=== PATIENT | female | born 1935 | race Caucasian/White ===

== ENCOUNTER 2021-01-24 12:53 | Inpatient (IN) | payer OTHER ==
[~2021-01-24] VITALS: Ht 175.3 cm; Wt 77.1 kg
[2021-01-24] MEDS ORDERED: SODIUM CHLORIDE 0.9% 1000ML 1,000 ML IV STA (13:44)
[2021-01-24] MEDS ORDERED: DEXAMETHASONE SOD PHOS 10 MG/1 ML VIAL IV SCH (13:45)
[2021-01-24] MEDS ORDERED: AZITHROMYCIN 500MG/NS 250 ML 250 ML IV ONE (14:00)
[2021-01-24] MEDS ORDERED: CEFTRIAXONE 1 GM in SODIUM CHLORIDE 0.9% 50ML 50 ML IV ONE (14:00)
[2021-01-24] MEDS ORDERED: CEFTRIAXONE SOD 1 GM/50 ML BAG IV ONE (14:00)
[2021-01-24 14:08] LABS: BASOPHILS % 0.2 % (0.0-1.0); EOSINOPHILS % 0.7 % (0.0-6.0); HEMOGLOBIN 9.7 g/dL (12.0-16.0); LYMPHOCYTES # (AUTO) 0.9 (1.0-3.2); LYMPHOCYTES % 16.4 % (18.0-39.1); MEAN CORPUSCULAR HEMOGLOBIN 29.2 pg (28-32); MEAN CORPUSCULAR HGB CONC 30.3 g/dL (31-35); MEAN CORPUSCULAR VOLUME 96.4 fL (81-99); MONOCYTES # (AUTO) 0.2 (0.2-0.8); MONOCYTES % 4.1 % (4.4-11.3); NEUTROPHILS # (AUTO) 4.2 (2.1-6.9); NEUTROPHILS % 77.7 % (38.7-80.0); PLATELET COUNT 279 x10e3/uL (140-360); RED BLOOD COUNT 3.32 x10e6/uL (3.6-5.1); RED CELL DISTRIBUTION WIDTH 16.6 % (11.7-14.4)
[2021-01-24 14:12] LABS: INR 1.01; PROTHROMBIN TIME 13.9 seconds (11.9-14.5)
[2021-01-24 14:13] LABS: PARTIAL THROMBOPLASTIN TIME 30.8 seconds (23.8-35.5)
[2021-01-24 14:19] LABS: ABG HCO3 25 mmol/L (22-26); ABG PCO2 32 mmHg (35-45); ABG PH 7.49 (7.35-7.45); ABG PO2 52 mmHg (80-105); ABG TCO2 26
[2021-01-24 14:23] LABS: ALBUMIN 2.8 g/dL (3.5-5.0); ALBUMIN/GLOBULIN RATIO 0.8 (0.8-2.0); ANION GAP 14.5 mmol/L (8-16); CALCIUM 8.3 mg/dL (8.4-10.2); CREATININE, SERUM 1.25 mg/dL (0.57-1.11); MAGNESIUM 2.1 MG/DL (1.3-2.1); POTASSIUM 4.5 mmol/L (3.5-5.1)
[2021-01-24 14:29] LABS: CREATINE KINASE MB 0.8 ng/mL (0-5.0)
[2021-01-24 14:30] LABS: CLARITY,URINE HAZY (CLEAR); COLOR,URINE YELLOW (YELLOW); LEUKOCYTE ESTERASE ,URINE SMALL (NEGATIVE); NITRITE,URINE POSITIVE (NEGATIVE); PROTEIN,URINE DIPSTICK 1+ (NEGATIVE)
[2021-01-24] MEDS ORDERED: ACETAMINOPHEN 325 MG TAB PO ONE (14:30)
[2021-01-24] MEDS ORDERED: ACETAMINOPHEN 325 MG TAB ONE (14:30)
[2021-01-24 14:31] LABS: KETONES,URINE NEGATIVE (NEGATIVE); URINE UROBILINOGEN 0.2 mg/dL (0.2 - 1)
[2021-01-24 14:32] LABS: BACTERIA,URINE MANY /HPF; WBC,URINE (MAN) >50 /HPF (0-5)
[2021-01-24 14:33] LABS: EPITHELIAL CELLS,URINE FEW /LPF; MUCUS,URINE MODERATE (RARE)
[2021-01-24 14:40] LABS: B-TYPE NATRIURETIC PEPTIDE2 313.9 pg/mL (0-100)
[2021-01-24] MEDS ORDERED: SODIUM CHLORIDE 0.9% 500ML 500 ML IV ONE (15:15)
[2021-01-24] MEDS ORDERED: SODIUM CHLORIDE 0.9% 50ML 50 ML ONE (15:56)
[2021-01-24] MEDS ORDERED: IOPAMIDOL 370 MG/ML 200 ML INFUS..BTL INJ ONE (15:56)
[2021-01-24] MEDS ORDERED: ONDANSETRON HCL INJ 2MG/ML 2ML 2 MG/ML VIAL IV PRN ×2 (18:15→23:00)
[2021-01-24] MEDS ORDERED: MORPHINE SULFATE INJ 2 MG/ML SYR IV PRN (18:15)
[2021-01-24] MEDS: PIPERACILLIN/TAZO 2.25 GM 50 ML IV SCH (18:15)
[2021-01-24] MEDS ORDERED: PIPERACILLIN/TAZOBACTAM SOD 2.25 GM VIAL ONE (18:46)
[2021-01-24] MEDS: ENOXAPARIN SODIUM INJ 100 MG/ML SYR SC SCH (18:49)
[2021-01-24 22:00] VITALS: BP 102/52
[2021-01-24 23:00] VITALS: BP 101/46
[2021-01-24] MEDS ORDERED: ACETAMINOPHEN/CODEINE 300MG - 30MG TAB PO PRN (23:00)
[2021-01-24] MEDS ORDERED: ACETAMINOPHEN 325 MG TAB PO PRN (23:00)
[2021-01-24] MEDS ORDERED: HYDRALAZINE HCL 20 MG/ML VIAL IV PRN (23:00)
[2021-01-24] MEDS ORDERED: ALBUTEROL/IPRATROPIUM 3 ML NEB NEB PRN (23:15)
[2021-01-25] VITALS (26 sets, daily range): BP systolic 90–143; BP diastolic 42–79
[2021-01-25] MEDS ORDERED: PIPERACILLIN/TAZOBACTAM SOD 2.25 GM VIAL ONE ×2 (00:07→06:02)
[2021-01-25] MEDS: PIPERACILLIN/TAZO 2.25 GM 50 ML IV SCH ×5 (00:24→23:55)
[2021-01-25] MEDS ORDERED: SODIUM CHLORIDE 0.9% 50ML 50 ML ONE ×2 (00:32→06:02)
[2021-01-25 05:49] LABS: HEMOGLOBIN 9.1 g/dL (12.0-16.0); LYMPHOCYTES # (AUTO) 1.2 (1.0-3.2); LYMPHOCYTES % 29.5 % (18.0-39.1); MEAN CORPUSCULAR HEMOGLOBIN 29.2 pg (28-32); MEAN CORPUSCULAR HGB CONC 30.3 g/dL (31-35); MEAN CORPUSCULAR VOLUME 96.2 fL (81-99); MONOCYTES # (AUTO) 0.1 (0.2-0.8); MONOCYTES % 2.5 % (4.4-11.3); NEUTROPHILS # (AUTO) 2.7 (2.1-6.9); NEUTROPHILS % 66.8 % (38.7-80.0); PLATELET COUNT 269 x10e3/uL (140-360); RED BLOOD COUNT 3.12 x10e6/uL (3.6-5.1); RED CELL DISTRIBUTION WIDTH 16.1 % (11.7-14.4)
[2021-01-25] MEDS: ENOXAPARIN SODIUM INJ 100 MG/ML SYR SC SCH (05:57)
[2021-01-25 06:42] LABS: ALBUMIN 2.5 g/dL (3.5-5.0); ALBUMIN/GLOBULIN RATIO 0.7 (0.8-2.0); ANION GAP 14.9 mmol/L (8-16); CALCIUM 8.3 mg/dL (8.4-10.2); CHOL/HDL RATIO 3.9 (3.0-3.6); CREATININE, SERUM 1.36 mg/dL (0.57-1.11); POTASSIUM 4.9 mmol/L (3.5-5.1)
[2021-01-25 07:30] LABS: % IRON SATURATION 8 % (15-50); IRON 23 ug/dL (50-170); TOTAL IRON BINDING CAPACITY 281 ug/dL (261-478); TRANSFERRIN 201 mg/dL (180-382)
[2021-01-25 09:33] LABS: CREATINE KINASE MB 1.2 ng/mL (0-5.0)
[2021-01-25 12:58] LABS: CREATINE KINASE MB 1.4 ng/mL (0-5.0)
[2021-01-25] MEDS ORDERED: DEXTROSE 50% SYRINGE 50 ML IV PRN (14:45)
[2021-01-25] MEDS ORDERED: DULCOLAX SUPP10 MG RC (16:16)
[2021-01-25] MEDS ORDERED: SERTRALINE HCL50 MG PO (16:16)
[2021-01-25] MEDS ORDERED: SENNA8.6 MG PO (16:16)
[2021-01-25] MEDS ORDERED: ADMELOG SO100 UNIT/1 SQ (16:16)
[2021-01-25] MEDS ORDERED: HYDROCODON-ACE1 EAC9 PO (16:16)
[2021-01-25] MEDS ORDERED: VITAMIN B-121000 MCG PO (16:16)
[2021-01-25] MEDS ORDERED: ASPIRIN81 MG PO (16:16)
[2021-01-25] MEDS ORDERED: TRULICITY0.75 MG/0. SQ (16:16)
[2021-01-25] MEDS ORDERED: SIMETHICONE80 MG PO ×2 (16:16)
[2021-01-25] MEDS ORDERED: MIRTAZAPINE15 MG PO (16:16)
[2021-01-25] MEDS ORDERED: VITAMIN D3 COM1 EACH PO (16:16)
[2021-01-25] MEDS ORDERED: CALCIUM CARBON500 MG PO (16:16)
[2021-01-25] MEDS ORDERED: FOLIC ACID20 MG PO (16:16)
[2021-01-25] MEDS ORDERED: SEMGLEE PE100 UNIT/1 SQ ×2 (16:16)
[2021-01-25] MEDS ORDERED: JARDIANCE25 MG PO (16:16)
[2021-01-25] MEDS ORDERED: AMLODIPINE BESY10 MG PO (16:16)
[2021-01-25] MEDS ORDERED: TRULICITY1.5 MG/0.5 SQ (16:16)
[2021-01-25] MEDS ORDERED: LISINOPRIL10 MG PO (16:16)
[2021-01-25] MEDS ORDERED: GLIMEPIRIDE4 MG PO (16:16)
[2021-01-25] MEDS ORDERED: ZOCOR10 MG PO (16:16)
[2021-01-25] MEDS ORDERED: NEURONTIN100 MG PO (16:16)
[2021-01-25] MEDS ORDERED: PANTOPRAZOLE SO40 MG PO (16:16)
[2021-01-25] MEDS ORDERED: FLOMAX0.4 MG PO (16:16)
[2021-01-25] MEDS ORDERED: ULTRAM50 MG PO (16:16)
[2021-01-25] MEDS: INSULIN REGULAR, HUMAN 100 UNIT/1 ML 3ML VIAL SQ SCH ×2 (16:30→21:15)
[2021-01-25] MEDS: ENOXAPARIN INJ 80 MG/0.8 ML SYR SC SCH (17:30)
[2021-01-26] VITALS (9 sets, daily range): BP systolic 115–139; BP diastolic 46–93
[2021-01-26 05:09] LABS: BASOPHILS % 0.2 % (0.0-1.0); EOSINOPHILS # (AUTO) 0.1 (0.0-0.4); EOSINOPHILS % 2.6 % (0.0-6.0); HEMOGLOBIN 8.5 g/dL (12.0-16.0); LYMPHOCYTES # (AUTO) 1.8 (1.0-3.2); LYMPHOCYTES % 34.7 % (18.0-39.1); MEAN CORPUSCULAR HEMOGLOBIN 29.1 pg (28-32); MEAN CORPUSCULAR HGB CONC 30.4 g/dL (31-35); MEAN CORPUSCULAR VOLUME 95.9 fL (81-99); MONOCYTES # (AUTO) 0.4 (0.2-0.8); MONOCYTES % 7.7 % (4.4-11.3); NEUTROPHILS # (AUTO) 2.7 (2.1-6.9); PLATELET COUNT 275 x10e3/uL (140-360); RED BLOOD COUNT 2.92 x10e6/uL (3.6-5.1); RED CELL DISTRIBUTION WIDTH 16.2 % (11.7-14.4)
[2021-01-26 05:23] LABS: ALBUMIN 2.5 g/dL (3.5-5.0); ALBUMIN/GLOBULIN RATIO 0.8 (0.8-2.0); ANION GAP 14.4 mmol/L (8-16); CREATININE, SERUM 1.07 mg/dL (0.57-1.11); POTASSIUM 4.4 mmol/L (3.5-5.1)
[2021-01-26] MEDS: ENOXAPARIN INJ 80 MG/0.8 ML SYR SC SCH ×2 (05:33→17:12)
[2021-01-26] MEDS: PIPERACILLIN/TAZO 2.25 GM 50 ML IV SCH ×3 (05:52→18:18)
[2021-01-26] MEDS: INSULIN REGULAR, HUMAN 100 UNIT/1 ML 3ML VIAL SQ SCH ×4 (07:21→21:20)
[2021-01-26] MEDS ORDERED: PANTOPRAZOLE SOD 40 MG TABEC PO SCH (12:00)
[2021-01-26] MEDS ORDERED: SENNOSIDES 8.6 MG TAB PO SCH (12:00)
[2021-01-26] MEDS ORDERED: BISACODYL 10 MG SUPP PR PRN (16:00)
[2021-01-26] MEDS ORDERED: SALINE 0.65% NAS SOLN 1 SPRAY BTL PRN (16:15)
[2021-01-26] MEDS: GLIMEPIRIDE 2 MG TAB PO SCH (17:00)
[2021-01-26] MEDS: SENNOSIDES 8.6 MG TAB PO SCH (17:12)
[2021-01-26] MEDS: IRON SUCROSE 100 MG in SODIUM CHLORIDE 0.9% 100 ML 100 ML IV SCH (17:12)
[2021-01-26] MEDS: PANTOPRAZOLE SOD 40 MG TABEC PO SCH (17:12)
[2021-01-26] MEDS: GABAPENTIN 100 MG CAP PO SCH (21:14)
[2021-01-26] MEDS: SIMVASTATIN 20 MG TAB PO SCH (21:14)
[2021-01-26] MEDS: MIRTAZAPINE 15 MG TAB PO SCH (21:14)
[2021-01-27] VITALS (8 sets, daily range): BP systolic 108–131; BP diastolic 47–56
[2021-01-27] MEDS: PIPERACILLIN/TAZO 2.25 GM 50 ML IV SCH ×4 (00:31→19:00)
[2021-01-27] MEDS: ENOXAPARIN INJ 80 MG/0.8 ML SYR SC SCH (06:00)
[2021-01-27 07:16] LABS: BASOPHILS % 0.3 % (0.0-1.0); EOSINOPHILS # (AUTO) 0.2 (0.0-0.4); HEMATOCRIT 29.1 % (34.2-44.1); HEMOGLOBIN 8.6 g/dL (12.0-16.0); LYMPHOCYTES # (AUTO) 1.2 (1.0-3.2); LYMPHOCYTES % 32.1 % (18.0-39.1); MEAN CORPUSCULAR HEMOGLOBIN 28.5 pg (28-32); MEAN CORPUSCULAR HGB CONC 29.6 g/dL (31-35); MEAN CORPUSCULAR VOLUME 96.4 fL (81-99); MONOCYTES # (AUTO) 0.3 (0.2-0.8); MONOCYTES % 8.9 % (4.4-11.3); NEUTROPHILS % 54.2 % (38.7-80.0); PLATELET COUNT 269 x10e3/uL (140-360); RED BLOOD COUNT 3.02 x10e6/uL (3.6-5.1); RED CELL DISTRIBUTION WIDTH 16.5 % (11.7-14.4)
[2021-01-27] MEDS ORDERED: PANTOPRAZOLE SOD 40 MG TABEC PO SCH (07:30)
[2021-01-27] MEDS: INSULIN REGULAR, HUMAN 100 UNIT/1 ML 3ML VIAL SQ SCH ×4 (07:30→21:08)
[2021-01-27 07:35] LABS: ANION GAP 14.4 mmol/L (8-16); CALCIUM 7.8 mg/dL (8.4-10.2); CREATININE, SERUM 0.95 mg/dL (0.57-1.11); POTASSIUM 4.4 mmol/L (3.5-5.1)
[2021-01-27] MEDS: PANTOPRAZOLE SOD 40 MG TABEC PO SCH (08:13)
[2021-01-27] MEDS: GLIMEPIRIDE 2 MG TAB PO SCH ×2 (08:13→17:08)
[2021-01-27] MEDS: CYANOCOBALAMIN 1,000 MCG TAB PO SCH (08:18)
[2021-01-27] MEDS: AMLODIPINE BESYLATE 10 MG TAB PO SCH (08:18)
[2021-01-27] MEDS: TAMSULOSIN HCL 0.4 MG CAP PO SCH (08:18)
[2021-01-27] MEDS: SENNOSIDES 8.6 MG TAB PO SCH (08:18)
[2021-01-27] MEDS: ASPIRIN 81 MG CHEW TAB PO SCH (08:18)
[2021-01-27] MEDS: OYST-CAL-D 500MG TABLET PO SCH (08:18)
[2021-01-27] MEDS: SERTRALINE HCL 50 MG TAB PO SCH (08:18)
[2021-01-27] MEDS ORDERED: EPOETIN ALFA-EPBX 10,000 UNIT/ML VIAL SC ONE (09:45)
[2021-01-27] MEDS ORDERED: APIXABAN 5 MG TABLET PO SCH (17:00)
[2021-01-27] MEDS: APIXABAN 5 MG TABLET PO SCH (17:08)
[2021-01-27] MEDS: IRON SUCROSE 100 MG in SODIUM CHLORIDE 0.9% 100 ML 100 ML IV SCH (18:20)
[2021-01-27] MEDS: SIMVASTATIN 20 MG TAB PO SCH (21:07)
[2021-01-27] MEDS: MIRTAZAPINE 15 MG TAB PO SCH (21:07)
[2021-01-27] MEDS: GABAPENTIN 100 MG CAP PO SCH (21:07)
[2021-01-28] VITALS: BP 136/55
[2021-01-28] MEDS: PIPERACILLIN/TAZO 2.25 GM 50 ML IV SCH ×3 (00:09→16:49)
[2021-01-28 04:00] VITALS: BP 125/49
[2021-01-28 07:24] LABS: BASOPHILS % 0.3 % (0.0-1.0); EOSINOPHILS # (AUTO) 0.2 (0.0-0.4); HEMATOCRIT 29.4 % (34.2-44.1); HEMOGLOBIN 8.7 g/dL (12.0-16.0); LYMPHOCYTES # (AUTO) 1.5 (1.0-3.2); LYMPHOCYTES % 37.4 % (18.0-39.1); MEAN CORPUSCULAR HEMOGLOBIN 28.5 pg (28-32); MEAN CORPUSCULAR HGB CONC 29.6 g/dL (31-35); MEAN CORPUSCULAR VOLUME 96.4 fL (81-99); MONOCYTES # (AUTO) 0.3 (0.2-0.8); MONOCYTES % 7.3 % (4.4-11.3); NEUTROPHILS % 50.5 % (38.7-80.0); PLATELET COUNT 255 x10e3/uL (140-360); RED BLOOD COUNT 3.05 x10e6/uL (3.6-5.1); RED CELL DISTRIBUTION WIDTH 16.3 % (11.7-14.4)
[2021-01-28 07:48] LABS: ALBUMIN 2.4 g/dL (3.5-5.0); ALBUMIN/GLOBULIN RATIO 0.7 (0.8-2.0); ANION GAP 12.1 mmol/L (8-16); CREATININE, SERUM 0.98 mg/dL (0.57-1.11); POTASSIUM 4.1 mmol/L (3.5-5.1)
[2021-01-28 08:00] VITALS: BP 127/55
[2021-01-28] MEDS: SENNOSIDES 8.6 MG TAB PO SCH ×2 (09:00→10:17)
[2021-01-28 09:08] VITALS: BP 127/55
[2021-01-28] MEDS: AMLODIPINE BESYLATE 10 MG TAB PO SCH ×2 (10:15→10:18)
[2021-01-28] MEDS: INSULIN REGULAR, HUMAN 100 UNIT/1 ML 3ML VIAL SQ SCH ×3 (10:16→16:30)
[2021-01-28] MEDS: OYST-CAL-D 500MG TABLET PO SCH (10:17)
[2021-01-28] MEDS: APIXABAN 5 MG TABLET PO SCH ×2 (10:17→16:52)
[2021-01-28] MEDS: PANTOPRAZOLE SOD 40 MG TABEC PO SCH (10:17)
[2021-01-28] MEDS: TAMSULOSIN HCL 0.4 MG CAP PO SCH (10:17)
[2021-01-28] MEDS: CYANOCOBALAMIN 1,000 MCG TAB PO SCH (10:17)
[2021-01-28] MEDS: SERTRALINE HCL 50 MG TAB PO SCH (10:17)
[2021-01-28] MEDS: ASPIRIN 81 MG CHEW TAB PO SCH (10:17)
[2021-01-28] MEDS: GLIMEPIRIDE 2 MG TAB PO SCH ×2 (10:17→16:52)
[2021-01-28 12:00] VITALS: BP 151/54
[2021-01-28] MEDS ORDERED: ELIQUIS5 MG PO (15:24)
[2021-01-28] MEDS ORDERED: CIPRO500 MG PO (15:24)
[2021-01-28 16:08] VITALS: BP 135/35
[2021-01-28] MEDS ORDERED: NYSTATIN 15 GM POWDER UD BTL TOP SCH (17:00)
[2021-01-28] MEDS ORDERED: ONDANSETRON HCL 4 MG ORAL DISINTEGRATING TAB PO PRN (17:00)
[2021-01-28] MEDS: IRON SUCROSE 100 MG in SODIUM CHLORIDE 0.9% 100 ML 100 ML IV SCH (17:00)
[2021-01-28] MEDS ORDERED: PIPERACILLIN/TAZOBACTAM 2.25 GM in SODIUM CHLORIDE 0.9% 50ML 50 ML IV SCH (18:00)
== END 2021-01-28 19:50 | disposition home or self-care (01) | DRG 175 ==
LOC: ER 13:15 → EDBD 18:04 → ERHOLD 18:04 → ICU 22:05 → IMCU 01-26 00:28 → MED/SURG3 01-28 13:16
PROVIDERS: ADMIT Internal Medicine; ATTEND Internal Medicine
DX: I26.99 Other pulmonary embolism without acute cor pulmonale (principal); J96.01 Acute respiratory failure with hypoxia; N17.9 Acute kidney failure, unspecified; N39.0 Urinary tract infection, site not specified; K62.6 Ulcer of anus and rectum; Z20.822 Contact with and (suspected) exposure to COVID-19; E11.9 Type 2 diabetes mellitus without complications; D64.9 Anemia, unspecified; I10 Essential (primary) hypertension; Z86.16 Personal history of COVID-19; B96.1 Klebsiella pneumoniae [K. pneumoniae] as the cause of diseases classified elsewhere; Z85.3 Personal history of malignant neoplasm of breast; Z96.649 Presence of unspecified artificial hip joint; R21 Rash and other nonspecific skin eruption; R33.9 Retention of urine, unspecified; E66.9 Obesity, unspecified; S51.812A Laceration without foreign body of left forearm, initial encounter; L89.151 Pressure ulcer of sacral region, stage 1; S31.114A Laceration without foreign body of abdominal wall, left lower quadrant without penetration into peritoneal cavity, initial encounter; Z91.81 History of falling; Z68.25 Body mass index [BMI] 25.0-25.9, adult; Z79.84 Long term (current) use of oral hypoglycemic drugs
CPT/HCPCS: 36415; 36600; 51700; 71045; 71260; 80048; 80053; 80061; 81001; 82550; 82553; 82728; 82805; 82948; 83540; 83605; 83735; 83880; 84466; 84484; 85025; 85610; 85730; 87040; 87086; 87186; 93005; 93306; 93970; 96372; 97139; 99251; 99285; J0456; J0696; J1100; J1650; J1756; J1817; J2543; J7030; Q9967; U0002

== ENCOUNTER 2021-02-02 16:28 | Inpatient (IN) | payer OTHER ==
[2021-02-01] MEDS: APIXABAN 5 MG TABLET PO SCH (23:45)
[~2021-02-02] VITALS: Ht 175.3 cm; Wt 77.1 kg
[~2021-02-02 16:28] MED LIST: ADMELOG SO100 UNIT/1 SQ; AMLODIPINE BESY10 MG PO; ASPIRIN81 MG PO; CALCIUM CARBON500 MG PO; CIPRO500 MG PO; DULCOLAX SUPP10 MG RC; ELIQUIS5 MG PO; FLOMAX0.4 MG PO; FOLIC ACID20 MG PO; GLIMEPIRIDE4 MG PO; HYDROCODON-ACE1 EAC9 PO; JARDIANCE25 MG PO; LISINOPRIL10 MG PO; MIRTAZAPINE15 MG PO; NEURONTIN100 MG PO; PANTOPRAZOLE SO40 MG PO; SEMGLEE PE100 UNIT/1 SQ; SENNA8.6 MG PO; SERTRALINE HCL50 MG PO; SIMETHICONE80 MG PO; TRULICITY0.75 MG/0. SQ; TRULICITY1.5 MG/0.5 SQ; ULTRAM50 MG PO; VITAMIN B-121000 MCG PO; VITAMIN D3 COM1 EACH PO; ZOCOR10 MG PO
[2021-02-02 17:21] LABS: BASOPHILS % 0.2 % (0.0-1.0); EOSINOPHILS # (AUTO) 0.1 (0.0-0.4); EOSINOPHILS % 1.7 % (0.0-6.0); HEMATOCRIT 30.2 % (34.2-44.1); HEMOGLOBIN 8.8 g/dL (12.0-16.0); LYMPHOCYTES # (AUTO) 1.2 (1.0-3.2); LYMPHOCYTES % 24.2 % (18.0-39.1); MEAN CORPUSCULAR HEMOGLOBIN 28.4 pg (28-32); MEAN CORPUSCULAR HGB CONC 29.1 g/dL (31-35); MEAN CORPUSCULAR VOLUME 97.4 fL (81-99); MONOCYTES # (AUTO) 0.3 (0.2-0.8); MONOCYTES % 5.5 % (4.4-11.3); NEUTROPHILS # (AUTO) 3.2 (2.1-6.9); NEUTROPHILS % 67.8 % (38.7-80.0); PLATELET COUNT 300 x10e3/uL (140-360); RED CELL DISTRIBUTION WIDTH 17.2 % (11.7-14.4)
[2021-02-02 17:25] LABS: INR 1.41; PROTHROMBIN TIME 17.9 seconds (11.9-14.5)
[2021-02-02 17:26] LABS: PARTIAL THROMBOPLASTIN TIME 40.5 seconds (23.8-35.5)
[2021-02-02 17:33] LABS: ALBUMIN 2.7 g/dL (3.5-5.0); ALBUMIN/GLOBULIN RATIO 0.7 (0.8-2.0); ANION GAP 15.5 mmol/L (8-16); CALCIUM 8.4 mg/dL (8.4-10.2); CREATININE, SERUM 1.1 mg/dL (0.57-1.11); POTASSIUM 3.5 mmol/L (3.5-5.1)
[2021-02-02] MEDS ORDERED: SODIUM CHLORIDE 0.9% 500ML 500 ML IV ONE (19:00)
[2021-02-02] MEDS ORDERED: IOPAMIDOL 370 MG/ML 200 ML INFUS..BTL INJ ONE (19:10)
[2021-02-02] MEDS ORDERED: SODIUM CHLORIDE 0.9% 50ML 50 ML ONE (19:10)
[2021-02-02] MEDS ORDERED: FUROSEMIDE INJ 10 MG/ML 4 ML VIAL IV ONE (20:30)
[2021-02-02] MEDS ORDERED: ACETAMINOPHEN 325 MG TAB PO PRN (23:00)
[2021-02-02] MEDS ORDERED: ONDANSETRON HCL INJ 2MG/ML 2ML 2 MG/ML VIAL IV PRN (23:00)
[2021-02-02] MEDS ORDERED: MIRTAZAPINE 15 MG TAB PO SCH (23:15)
[2021-02-02 23:40] VITALS: BP 132/65
[2021-02-03] MEDS ORDERED: OMEPRAZOLE40 MG PO (00:20)
[2021-02-03] MEDS ORDERED: GABAPENTIN300 MG PO (00:20)
[2021-02-03] MEDS ORDERED: FUROSEMIDE INJ 10 MG/ML 4 ML VIAL ONE (00:53)
[2021-02-03 02:00] VITALS: BP 115/57
[2021-02-03 04:00] VITALS: BP 118/52
[2021-02-03 05:03] LABS: BASOPHILS % 0.2 % (0.0-1.0); EOSINOPHILS # (AUTO) 0.1 (0.0-0.4); EOSINOPHILS % 2.3 % (0.0-6.0); HEMATOCRIT 28.4 % (34.2-44.1); HEMOGLOBIN 8.5 g/dL (12.0-16.0); LYMPHOCYTES # (AUTO) 0.7 (1.0-3.2); LYMPHOCYTES % 12.5 % (18.0-39.1); MEAN CORPUSCULAR HEMOGLOBIN 28.3 pg (28-32); MEAN CORPUSCULAR HGB CONC 29.9 g/dL (31-35); MEAN CORPUSCULAR VOLUME 94.7 fL (81-99); MONOCYTES # (AUTO) 0.3 (0.2-0.8); NEUTROPHILS # (AUTO) 4.5 (2.1-6.9); NEUTROPHILS % 79.5 % (38.7-80.0); PLATELET COUNT 277 x10e3/uL (140-360); RED CELL DISTRIBUTION WIDTH 17.3 % (11.7-14.4)
[2021-02-03 05:34] LABS: ALBUMIN 2.4 g/dL (3.5-5.0); ALBUMIN/GLOBULIN RATIO 0.7 (0.8-2.0); ANION GAP 14.5 mmol/L (8-16); CREATININE, SERUM 1.03 mg/dL (0.57-1.11); POTASSIUM 3.5 mmol/L (3.5-5.1)
[2021-02-03] MEDS: INSULIN LISPRO 100 UNIT/1 ML 3ML VIAL SQ SCH ×3 (07:30→16:30)
[2021-02-03 08:51] VITALS: BP 116/42
[2021-02-03] MEDS ORDERED: SERTRALINE HCL 50 MG TAB PO SCH (09:00)
[2021-02-03 09:24] VITALS: BP 116/42
[2021-02-03] MEDS: APIXABAN 5 MG TABLET PO SCH (09:48)
[2021-02-03] MEDS ORDERED: LACTATED RINGER'S 500 ML INJ ONE (10:30)
[2021-02-03] MEDS ORDERED: HEPARIN 25,000 UNIT 1,300 UNIT in DEXTROSE 5% 250ML 250 ML IV SCH (10:30)
[2021-02-03] MEDS ORDERED: LIDOCAINE HCL 2% LOCAL 20 ML VIAL ONE (10:36)
[2021-02-03 12:25] VITALS: BP 101/52
[2021-02-03 16:35] VITALS: BP 96/63
[2021-02-03] MEDS ORDERED: SIMVASTATIN 20 MG TAB PO SCH (21:00)
== END 2021-02-03 17:14 | disposition short-term general hospital (02) | DRG 175 ==
LOC: ER 16:31 → ERHOLD 21:13 → IMCU 23:00 → OBSVTOIN 02-03 10:27
PROVIDERS: ADMIT Internal Medicine; ATTEND Internal Medicine
DX: I26.99 Other pulmonary embolism without acute cor pulmonale (principal); J96.00 Acute respiratory failure, unspecified whether with hypoxia or hypercapnia; N17.9 Acute kidney failure, unspecified; E11.9 Type 2 diabetes mellitus without complications; Z79.4 Long term (current) use of insulin; M16.11 Unilateral primary osteoarthritis, right hip; Z85.3 Personal history of malignant neoplasm of breast; Z20.822 Contact with and (suspected) exposure to COVID-19
CPT/HCPCS: 36415; 71045; 71260; 80053; 82550; 82553; 82948; 83880; 84484; 85025; 85610; 85730; 93005; 93306; 99251; 99284; G0378; J1940; J2001; J7040; J7121; Q9967; U0002

== ENCOUNTER 2021-03-19 13:36 | Inpatient (IN) | payer MEDICARE, OTHER ==
[~2021-03-19] VITALS: Ht 147.3 cm; Wt 77.1 kg
[~2021-03-19 13:36] MED LIST changes: +GABAPENTIN300 MG PO; +OMEPRAZOLE40 MG PO
[2021-03-19 14:34] LABS: BASOPHILS % 0.1 % (0.0-1.0); EOSINOPHILS # (AUTO) 0.1 (0.0-0.4); EOSINOPHILS % 0.7 % (0.0-6.0); HEMATOCRIT 35.6 % (34.2-44.1); HEMOGLOBIN 10.3 g/dL (12.0-16.0); LYMPHOCYTES # (AUTO) 0.9 (1.0-3.2); LYMPHOCYTES % 12.6 % (18.0-39.1); MEAN CORPUSCULAR HEMOGLOBIN 26.8 pg (28-32); MEAN CORPUSCULAR HGB CONC 28.9 g/dL (31-35); MEAN CORPUSCULAR VOLUME 92.7 fL (81-99); MONOCYTES # (AUTO) 0.2 (0.2-0.8); MONOCYTES % 3.3 % (4.4-11.3); NEUTROPHILS # (AUTO) 5.8 (2.1-6.9); NEUTROPHILS % 82.7 % (38.7-80.0); PLATELET COUNT 302 x10e3/uL (140-360); RED BLOOD COUNT 3.84 x10e6/uL (3.6-5.1)
[2021-03-19 14:37] LABS: CLARITY,URINE SL CLOUDY (CLEAR); COLOR,URINE YELLOW (YELLOW); KETONES,URINE NEGATIVE (NEGATIVE); LEUKOCYTE ESTERASE ,URINE MODERATE (NEGATIVE); NITRITE,URINE NEGATIVE (NEGATIVE); PROTEIN,URINE DIPSTICK TRACE (NEGATIVE); URINE UROBILINOGEN 0.2 mg/dL (0.2 - 1)
[2021-03-19 14:54] LABS: ALBUMIN 3.1 g/dL (3.5-5.0); ALBUMIN/GLOBULIN RATIO 0.8 (0.8-2.0); ANION GAP 17.1 mmol/L (8-16); CALCIUM 8.7 mg/dL (8.4-10.2); CREATININE, SERUM 1.72 mg/dL (0.57-1.11); POTASSIUM 5.1 mmol/L (3.5-5.1)
[2021-03-19 15:00] LABS: AMORPHOUS SEDIMENT,URINE MODERATE (FEW); BACTERIA,URINE MANY /HPF; EPITHELIAL CELLS,URINE FEW /LPF
[2021-03-19] MEDS ORDERED: CEFTRIAXONE 1 GM VIAL IV ONE (15:30)
[2021-03-19] MEDS ORDERED: SODIUM CHLORIDE 0.9% 1000ML 1,000 ML IV SCH (15:30)
[2021-03-19] MEDS ORDERED: ONDANSETRON HCL INJ 2MG/ML 2ML 2 MG/ML VIAL IV PRN (15:45)
[2021-03-19] MEDS ORDERED: CEFTRIAXONE 1 GM in SODIUM CHLORIDE 0.9% 50ML 50 ML IV ONE (15:45)
[2021-03-19] MEDS: SODIUM CHLORIDE 0.9% 1000ML 1,000 ML IV SCH ×2 (16:30→23:00)
[2021-03-19 22:24] VITALS: BP 138/47
[2021-03-19] MEDS ORDERED: GABAPENTIN 300 MG CAP PO SCH (22:45)
[2021-03-19] MEDS ORDERED: DEXTROSE 50% SYRINGE 50 ML IV PRN (23:00)
[2021-03-20] VITALS (9 sets, daily range): BP systolic 115–160; BP diastolic 39–66
[2021-03-20] MEDS ORDERED: GABAPENTIN 300 MG CAP PO SCH (04:45)
[2021-03-20 06:00] LABS: BASOPHILS % 0.2 % (0.0-1.0); EOSINOPHILS # (AUTO) 0.1 (0.0-0.4); EOSINOPHILS % 2.4 % (0.0-6.0); HEMATOCRIT 34.3 % (34.2-44.1); HEMOGLOBIN 9.8 g/dL (12.0-16.0); LYMPHOCYTES # (AUTO) 1.8 (1.0-3.2); LYMPHOCYTES % 43.1 % (18.0-39.1); MEAN CORPUSCULAR HEMOGLOBIN 27.5 pg (28-32); MEAN CORPUSCULAR HGB CONC 28.6 g/dL (31-35); MEAN CORPUSCULAR VOLUME 96.3 fL (81-99); MONOCYTES # (AUTO) 0.3 (0.2-0.8); NEUTROPHILS % 47.8 % (38.7-80.0); PLATELET COUNT 220 x10e3/uL (140-360); RED BLOOD COUNT 3.56 x10e6/uL (3.6-5.1)
[2021-03-20 06:24] LABS: ANION GAP 13.7 mmol/L (8-16); CREATININE, SERUM 1.26 mg/dL (0.57-1.11); POTASSIUM 4.7 mmol/L (3.5-5.1)
[2021-03-20] MEDS: INSULIN LISPRO 100 UNIT/1 ML 3ML VIAL SQ SCH ×4 (07:30→20:55)
[2021-03-20] MEDS: GLIMEPIRIDE 2 MG TAB PO SCH ×2 (08:00→17:02)
[2021-03-20] MEDS: PANTOPRAZOLE SOD 40 MG TABEC PO SCH (08:00)
[2021-03-20] MEDS: NON-FORMULARY MEDICATION (Empagliflozin (Jardiance) 25 MG) PO SCH (09:00)
[2021-03-20] MEDS: AMLODIPINE BESYLATE 10 MG TAB PO SCH (09:20)
[2021-03-20] MEDS: CEFTRIAXONE 1 GM in SODIUM CHLORIDE 0.9% 50ML 50 ML IV SCH (09:20)
[2021-03-20] MEDS: SERTRALINE HCL 50 MG TAB PO SCH (09:20)
[2021-03-20] MEDS: APIXABAN 5 MG TABLET PO SCH ×2 (09:20→17:02)
[2021-03-20] MEDS: SODIUM CHLORIDE 0.9% 1000ML 1,000 ML IV SCH (16:55)
[2021-03-20] MEDS: SIMVASTATIN 20 MG TAB PO SCH (20:53)
[2021-03-20] MEDS: MIRTAZAPINE 15 MG TAB PO SCH (20:53)
[2021-03-21] VITALS (7 sets, daily range): BP systolic 109–162; BP diastolic 46–69
[2021-03-21] MEDS: SODIUM CHLORIDE 0.9% 1000ML 1,000 ML IV SCH ×2 (02:18→17:54)
[2021-03-21 06:20] LABS: BASOPHILS % 0.2 % (0.0-1.0); EOSINOPHILS # (AUTO) 0.1 (0.0-0.4); EOSINOPHILS % 3.4 % (0.0-6.0); HEMATOCRIT 27.6 % (34.2-44.1); HEMOGLOBIN 8.1 g/dL (12.0-16.0); LYMPHOCYTES # (AUTO) 1.5 (1.0-3.2); LYMPHOCYTES % 35.2 % (18.0-39.1); MEAN CORPUSCULAR HEMOGLOBIN 26.9 pg (28-32); MEAN CORPUSCULAR HGB CONC 29.3 g/dL (31-35); MEAN CORPUSCULAR VOLUME 91.7 fL (81-99); MONOCYTES # (AUTO) 0.3 (0.2-0.8); MONOCYTES % 6.3 % (4.4-11.3); NEUTROPHILS # (AUTO) 2.3 (2.1-6.9); NEUTROPHILS % 54.7 % (38.7-80.0); PLATELET COUNT 231 x10e3/uL (140-360); RED BLOOD COUNT 3.01 x10e6/uL (3.6-5.1); RED CELL DISTRIBUTION WIDTH 16.7 % (11.7-14.4)
[2021-03-21 06:46] LABS: PHOSPHORUS 3.9 MG/DL (2.3-4.7)
[2021-03-21 07:07] LABS: THYROID STIMULATING HORMONE 1.556 uIU/mL (0.350-4.940)
[2021-03-21 07:16] LABS: ANION GAP 10.5 mmol/L (8-16); CALCIUM 8.1 mg/dL (8.4-10.2); CREATININE, SERUM 1.08 mg/dL (0.57-1.11); POTASSIUM 4.5 mmol/L (3.5-5.1)
[2021-03-21] MEDS: INSULIN LISPRO 100 UNIT/1 ML 3ML VIAL SQ SCH ×4 (07:30→21:00)
[2021-03-21] MEDS: GLIMEPIRIDE 2 MG TAB PO SCH ×2 (08:51→17:54)
[2021-03-21] MEDS: CEFTRIAXONE 1 GM in SODIUM CHLORIDE 0.9% 50ML 50 ML IV SCH (08:51)
[2021-03-21] MEDS: APIXABAN 5 MG TABLET PO SCH ×2 (08:51→17:54)
[2021-03-21] MEDS: PANTOPRAZOLE SOD 40 MG TABEC PO SCH (08:51)
[2021-03-21] MEDS: AMLODIPINE BESYLATE 10 MG TAB PO SCH (08:52)
[2021-03-21] MEDS: SERTRALINE HCL 50 MG TAB PO SCH (08:52)
[2021-03-21] MEDS: NON-FORMULARY MEDICATION (Empagliflozin (Jardiance) 25 MG) PO SCH (08:53)
[2021-03-21 09:00] LABS: HYPOCHROMASIA SLIGHT; PLATELET ESTIMATE ADEQUATE; PLATELET MORPHOLOGY COMMENT NORMAL
[2021-03-21 09:01] LABS: ANISOCYTOSIS SLIGHT; RBC MORPHOLOGY COMMENT ABNORMAL
[2021-03-21] MEDS: SIMVASTATIN 20 MG TAB PO SCH (21:00)
[2021-03-21] MEDS: MIRTAZAPINE 15 MG TAB PO SCH (21:00)
[2021-03-22] MEDS: SODIUM CHLORIDE 0.9% 1000ML 1,000 ML IV SCH (05:21)
[2021-03-22] MEDS: INSULIN LISPRO 100 UNIT/1 ML 3ML VIAL SQ SCH ×4 (07:26→20:04)
[2021-03-22] MEDS: NON-FORMULARY MEDICATION (Empagliflozin (Jardiance) 25 MG) PO SCH (07:27)
[2021-03-22] MEDS: PANTOPRAZOLE SOD 40 MG TABEC PO SCH (09:11)
[2021-03-22] MEDS: AMLODIPINE BESYLATE 10 MG TAB PO SCH (09:11)
[2021-03-22] MEDS: GLIMEPIRIDE 2 MG TAB PO SCH ×2 (09:11→17:31)
[2021-03-22] MEDS: SERTRALINE HCL 50 MG TAB PO SCH (09:11)
[2021-03-22] MEDS: CEFTRIAXONE 1 GM in SODIUM CHLORIDE 0.9% 50ML 50 ML IV SCH (09:11)
[2021-03-22] MEDS: APIXABAN 5 MG TABLET PO SCH ×2 (09:11→17:31)
[2021-03-22] MEDS ORDERED: MAGNESIUM/ALUMINUM/SIMETHICONE 30 ML UDC PO PRN (11:45)
[2021-03-22] MEDS: MIRTAZAPINE 15 MG TAB PO SCH (20:04)
[2021-03-22] MEDS: SIMVASTATIN 20 MG TAB PO SCH (20:04)
[2021-03-23 07:15] LABS: BASOPHILS % 0.3 % (0.0-1.0); EOSINOPHILS # (AUTO) 0.1 (0.0-0.4); EOSINOPHILS % 3.6 % (0.0-6.0); HEMATOCRIT 32.1 % (34.2-44.1); HEMOGLOBIN 9.6 g/dL (12.0-16.0); LYMPHOCYTES # (AUTO) 1.5 (1.0-3.2); LYMPHOCYTES % 37.8 % (18.0-39.1); MEAN CORPUSCULAR HEMOGLOBIN 26.8 pg (28-32); MEAN CORPUSCULAR HGB CONC 29.9 g/dL (31-35); MEAN CORPUSCULAR VOLUME 89.7 fL (81-99); MONOCYTES # (AUTO) 0.3 (0.2-0.8); MONOCYTES % 6.5 % (4.4-11.3); NEUTROPHILS % 51.5 % (38.7-80.0); PLATELET COUNT 231 x10e3/uL (140-360); RED BLOOD COUNT 3.58 x10e6/uL (3.6-5.1); RED CELL DISTRIBUTION WIDTH 16.2 % (11.7-14.4)
[2021-03-23] MEDS: INSULIN LISPRO 100 UNIT/1 ML 3ML VIAL SQ SCH ×2 (07:30→11:30)
[2021-03-23 07:40] LABS: BLOOD UREA NITROGEN 19 mg/dL (7-26); BUN/CREATININE RATIO 23 (6-25); CALCIUM 8.6 mg/dL (8.4-10.2); CARBON DIOXIDE 27 mmol/L (22-29); CHLORIDE 106 mmol/L (98-107); CREATININE, SERUM 0.83 mg/dL (0.57-1.11); EST GLOMERULAR FILTRATION RATE > 60 ML/MIN (60-); GLUCOSE 114 mg/dL (74-118); SODIUM 141 mmol/L (136-145)
[2021-03-23] MEDS: GLIMEPIRIDE 2 MG TAB PO SCH ×2 (08:10→16:30)
[2021-03-23] MEDS: PANTOPRAZOLE SOD 40 MG TABEC PO SCH (08:10)
[2021-03-23] MEDS: APIXABAN 5 MG TABLET PO SCH (09:00)
[2021-03-23] MEDS: CEFTRIAXONE 1 GM in SODIUM CHLORIDE 0.9% 50ML 50 ML IV SCH (09:00)
[2021-03-23] MEDS: AMLODIPINE BESYLATE 10 MG TAB PO SCH (09:00)
[2021-03-23] MEDS: NON-FORMULARY MEDICATION (Empagliflozin (Jardiance) 25 MG) PO SCH (09:00)
[2021-03-23] MEDS: SERTRALINE HCL 50 MG TAB PO SCH (09:00)
[2021-03-24] MEDS: GLIMEPIRIDE 2 MG TAB PO SCH ×2 (07:30→16:30)
[2021-03-24] MEDS: INSULIN LISPRO 100 UNIT/1 ML 3ML VIAL SQ SCH ×3 (07:30→16:33)
[2021-03-24] MEDS: PANTOPRAZOLE SOD 40 MG TABEC PO SCH (07:30)
[2021-03-24] MEDS: CEFTRIAXONE 1 GM in SODIUM CHLORIDE 0.9% 50ML 50 ML IV SCH (09:00)
[2021-03-24] MEDS: AMLODIPINE BESYLATE 10 MG TAB PO SCH (09:00)
[2021-03-24] MEDS: APIXABAN 5 MG TABLET PO SCH ×2 (09:00→16:39)
[2021-03-24] MEDS: SERTRALINE HCL 50 MG TAB PO SCH (09:00)
[2021-03-24 11:12] LABS: HEMATOCRIT 30.8 % (34.2-44.1); HEMOGLOBIN 9.3 g/dL (12.0-16.0); MEAN CORPUSCULAR VOLUME 89.8 fL (81-99); RED BLOOD COUNT 3.43 x10e6/uL (3.6-5.1)
[2021-03-24 11:13] LABS: BASOPHILS % 0.2 % (0.0-1.0); EOSINOPHILS # (AUTO) 0.1 (0.0-0.4); EOSINOPHILS % 1.4 % (0.0-6.0); LYMPHOCYTES # (AUTO) 1.3 (1.0-3.2); LYMPHOCYTES % 30.1 % (18.0-39.1); MEAN CORPUSCULAR HEMOGLOBIN 27.1 pg (28-32); MEAN CORPUSCULAR HGB CONC 30.2 g/dL (31-35); MONOCYTES # (AUTO) 0.2 (0.2-0.8); MONOCYTES % 5.5 % (4.4-11.3); NEUTROPHILS # (AUTO) 52.6 (2.1-6.9); NEUTROPHILS % 62.3 % (38.7-80.0); PLATELET COUNT 264 x10e3/uL (140-360); RED CELL DISTRIBUTION WIDTH 16.1 % (11.7-14.4)
[2021-03-24 11:14] LABS: ALANINE AMINOTRANSFERASE < 6 IU/L (0-55); ALBUMIN 2.7 g/dL (3.5-5.0); ALBUMIN/GLOBULIN RATIO 0.8 (0.8-2.0); ANION GAP 12.1 mmol/L (8-16); BLOOD UREA NITROGEN 19 mg/dL (7-26); BUN/CREATININE RATIO 24 (6-25); CALCIUM 8.6 mg/dL (8.4-10.2); CARBON DIOXIDE 28 mmol/L (22-29); CHLORIDE 106 mmol/L (98-107); EST GLOMERULAR FILTRATION RATE 69 ML/MIN (60-); GLUCOSE 130 mg/dL (74-118); POTASSIUM 4.1 mmol/L (3.5-5.1); SODIUM 142 mmol/L (136-145)
[2021-03-24 11:15] LABS: ALKALINE PHOSPHATASE 88 IU/L (40-150)
[2021-03-24 15:54] VITALS: BP 149/50
[2021-03-24] MEDS ORDERED: CIPRO250 MG PO (15:54)
== END 2021-03-24 19:02 | disposition home health service (06) | DRG 699 ==
LOC: ER 14:10 → ERHOLD 15:32 → MED/SURG3 20:24
PROVIDERS: ADMIT Internal Medicine; ATTEND Internal Medicine
DX: T83.511A Infection and inflammatory reaction due to indwelling urethral catheter, initial encounter (principal); N13.6 Pyonephrosis; N17.9 Acute kidney failure, unspecified; N18.9 Chronic kidney disease, unspecified; E11.22 Type 2 diabetes mellitus with diabetic chronic kidney disease; I12.9 Hypertensive chronic kidney disease with stage 1 through stage 4 chronic kidney disease, or unspecified chronic kidney disease; Z86.718 Personal history of other venous thrombosis and embolism; Z79.01 Long term (current) use of anticoagulants; Z86.711 Personal history of pulmonary embolism; E11.42 Type 2 diabetes mellitus with diabetic polyneuropathy; N31.9 Neuromuscular dysfunction of bladder, unspecified; E66.9 Obesity, unspecified; Z68.35 Body mass index [BMI] 35.0-35.9, adult; E83.51 Hypocalcemia; D64.9 Anemia, unspecified; E11.65 Type 2 diabetes mellitus with hyperglycemia; N39.498 Other specified urinary incontinence; B96.5 Pseudomonas (aeruginosa) (mallei) (pseudomallei) as the cause of diseases classified elsewhere; Z20.822 Contact with and (suspected) exposure to COVID-19; Z79.84 Long term (current) use of oral hypoglycemic drugs
CPT/HCPCS: 36415; 74176; 80048; 80053; 81001; 82948; 83036; 83605; 83735; 84100; 84443; 84484; 85025; 87040; 87071; 87086; 87186; 87205; 93005; 96361; 99284; J0696; J2405; J7030; U0002

== ENCOUNTER 2022-01-09 12:10 | Inpatient (IN) | payer MEDICARE ==
[~2022-01-09] VITALS: Ht 147.3 cm; Wt 80.7 kg
[~2022-01-09 12:10] MED LIST changes: +CIPRO250 MG PO
[2022-01-09] MEDS ORDERED: SODIUM CHLORIDE 0.9% 1000ML 1,000 ML IV STA (12:28)
[2022-01-09] MEDS ORDERED: METHYLPREDNISOLONE SOD SUCC 125 MG/2ML VIAL IV ONE (12:30)
[2022-01-09] MEDS ORDERED: CEFTRIAXONE 1 GM in SODIUM CHLORIDE 0.9% 50ML 50 ML IV ONE ×2 (12:30→14:30)
[2022-01-09 12:33] LABS: BASOPHILS % 0.2 % (0.0-1.0); EOSINOPHILS # (AUTO) 0.1 (0.0-0.4); EOSINOPHILS % 1.2 % (0.0-6.0); HEMATOCRIT 34.6 % (34.2-44.1); HEMOGLOBIN 10.5 g/dL (12.0-16.0); LYMPHOCYTES # (AUTO) 1.6 (1.0-3.2); LYMPHOCYTES % 33.3 % (18.0-39.1); MEAN CORPUSCULAR HEMOGLOBIN 27.5 pg (28-32); MEAN CORPUSCULAR HGB CONC 30.3 g/dL (31-35); MEAN CORPUSCULAR VOLUME 90.6 fL (81-99); MONOCYTES # (AUTO) 0.3 (0.2-0.8); MONOCYTES % 5.6 % (4.4-11.3); NEUTROPHILS # (AUTO) 2.8 (2.1-6.9); NEUTROPHILS % 58.9 % (38.7-80.0); PLATELET COUNT 311 x10e3/uL (140-360); RED BLOOD COUNT 3.82 x10e6/uL (3.6-5.1); RED CELL DISTRIBUTION WIDTH 16.6 % (11.7-14.4)
[2022-01-09 12:44] LABS: INR 1.34; PARTIAL THROMBOPLASTIN TIME 34.7 seconds (23.8-35.5); PROTHROMBIN TIME 17.7 seconds (11.9-14.5)
[2022-01-09 12:51] LABS: ALBUMIN 2.9 g/dL (3.5-5.0); ALBUMIN/GLOBULIN RATIO 0.6 (0.8-2.0); CALCIUM 9.1 mg/dL (8.4-10.2); CREATININE, SERUM 1.35 mg/dL (0.57-1.11)
[2022-01-09 12:56] LABS: B-TYPE NATRIURETIC PEPTIDE2 293.7 pg/mL (0-100)
[2022-01-09 12:58] LABS: CREATINE KINASE MB 1.2 ng/mL (0-5.0)
[2022-01-09 13:13] LABS: CLARITY,URINE TURBID (CLEAR); COLOR,URINE YELLOW (YELLOW); KETONES,URINE NEGATIVE (NEGATIVE); LEUKOCYTE ESTERASE ,URINE MODERATE (NEGATIVE); NITRITE,URINE NEGATIVE (NEGATIVE); PROTEIN,URINE DIPSTICK 1+ (NEGATIVE); URINE UROBILINOGEN 0.2 mg/dL (0.2 - 1)
[2022-01-09 13:15] LABS: BACTERIA,URINE FEW /HPF; EPITHELIAL CELLS,URINE MANY /LPF
[2022-01-09] MEDS ORDERED: SODIUM CHLORIDE 0.9% 50ML 50 ML ONE ×2 (13:37→16:25)
[2022-01-09] MEDS ORDERED: IOPAMIDOL 370 MG/ML 200 ML INFUS..BTL INJ ONE ×2 (13:37→16:25)
[2022-01-09 15:58] VITALS: BP 164/62
[2022-01-09] MEDS ORDERED: ONDANSETRON HCL INJ 2MG/ML 2ML 2 MG/ML VIAL IV PRN ×2 (17:30→17:45)
[2022-01-09] MEDS ORDERED: SODIUM CHLORIDE 0.45% 1,000 ML IV ONE (17:30)
[2022-01-09] MEDS ORDERED: ACETAMINOPHEN 325 MG TAB PO PRN ×2 (17:30→17:45)
[2022-01-09] MEDS ORDERED: AMLODIPINE BESYLATE 5 MG TAB PO SCH (17:45)
[2022-01-09] MEDS ORDERED: DEXTROSE 50% SYRINGE 50 ML IV PRN (17:45)
[2022-01-09] MEDS ORDERED: CLONIDINE HCL 0.1 MG TAB PO PRN (17:45)
[2022-01-09 20:00] VITALS: BP 168/54
[2022-01-09 21:00] VITALS: BP 168/54
[2022-01-09] MEDS: SIMVASTATIN 20 MG TAB PO SCH (21:34)
[2022-01-09] MEDS: AZITHROMYCIN 250 MG TAB PO SCH (21:34)
[2022-01-09] MEDS: MIRTAZAPINE 15 MG TAB PO SCH (21:34)
[2022-01-09] MEDS: INSULIN REGULAR, HUMAN 100 UNIT/1 ML SQ SCH (21:36)
[2022-01-09] MEDS: AMLODIPINE BESYLATE 5 MG TAB PO SCH (21:49)
[2022-01-09] MEDS: APIXAB 2.5 MG TABLET PO SCH (21:49)
[2022-01-09 22:15] VITALS: BP 168/54
[2022-01-10] VITALS (8 sets, daily range): BP systolic 149–173; BP diastolic 48–60
[2022-01-10 07:59] LABS: HEMATOCRIT 31.7 % (34.2-44.1); HEMOGLOBIN 9.7 g/dL (12.0-16.0); LYMPHOCYTES # (AUTO) 0.8 (1.0-3.2); LYMPHOCYTES % 21.3 % (18.0-39.1); MEAN CORPUSCULAR HEMOGLOBIN 27.2 pg (28-32); MEAN CORPUSCULAR HGB CONC 30.6 g/dL (31-35); MONOCYTES # (AUTO) 0.2 (0.2-0.8); MONOCYTES % 4.7 % (4.4-11.3); NEUTROPHILS # (AUTO) 2.8 (2.1-6.9); NEUTROPHILS % 73.2 % (38.7-80.0); PLATELET COUNT 310 x10e3/uL (140-360); RED BLOOD COUNT 3.56 x10e6/uL (3.6-5.1); RED CELL DISTRIBUTION WIDTH 16.4 % (11.7-14.4)
[2022-01-10 08:05] LABS: % IRON SATURATION 8 % (15-50); IRON 21 ug/dL (50-170); TOTAL IRON BINDING CAPACITY 272 ug/dL (261-478); TRANSFERRIN 194 mg/dL (180-382)
[2022-01-10 08:09] LABS: ANION GAP 12.2 mmol/L (8-16); CALCIUM 8.3 mg/dL (8.4-10.2); CREATININE, SERUM 1.33 mg/dL (0.57-1.11); POTASSIUM 4.2 mmol/L (3.5-5.1)
[2022-01-10] MEDS ORDERED: APIXAB 2.5 MG TABLET PO SCH (09:00)
[2022-01-10] MEDS ORDERED: AMLODIPINE BESYLATE 10 MG TAB PO SCH (09:00)
[2022-01-10] MEDS ORDERED: GLIMEPIRIDE 2 MG TAB PO SCH (09:00)
[2022-01-10] MEDS: AMLODIPINE BESYLATE 5 MG TAB PO SCH ×2 (09:14→20:45)
[2022-01-10] MEDS: APIXAB 2.5 MG TABLET PO SCH ×2 (09:14→20:45)
[2022-01-10] MEDS: PANTOPRAZOLE SOD 40 MG TABEC PO SCH (09:15)
[2022-01-10] MEDS: SERTRALINE HCL 50 MG TAB PO SCH (09:15)
[2022-01-10] MEDS: FUROSEMIDE INJ 10 MG/ML 2 ML VIAL IV SCH ×2 (10:03→16:38)
[2022-01-10] MEDS: INSULIN REGULAR, HUMAN 100 UNIT/1 ML SQ SCH ×4 (10:03→20:54)
[2022-01-10] MEDS: IRON SUCROSE 100 MG in SODIUM CHLORIDE 0.9% 100 ML 100 ML IV SCH (11:38)
[2022-01-10] MEDS ORDERED: Vancomycin IV 1 GM in SODIUM CHLORIDE 0.9% 250ML 250 ML IV ONE (13:00)
[2022-01-10] MEDS: AZITHROMYCIN 250 MG TAB PO SCH (16:38)
[2022-01-10] MEDS: MIRTAZAPINE 15 MG TAB PO SCH (20:45)
[2022-01-10] MEDS: SIMVASTATIN 20 MG TAB PO SCH (20:45)
[2022-01-11] VITALS (8 sets, daily range): BP systolic 161–175; BP diastolic 48–64
[2022-01-11 06:38] LABS: BASOPHILS % 0.2 % (0.0-1.0); EOSINOPHILS # (AUTO) 0.2 (0.0-0.4); EOSINOPHILS % 2.5 % (0.0-6.0); HEMOGLOBIN 10.2 g/dL (12.0-16.0); LYMPHOCYTES # (AUTO) 1.7 (1.0-3.2); LYMPHOCYTES % 27.5 % (18.0-39.1); MEAN CORPUSCULAR HEMOGLOBIN 27.1 pg (28-32); MEAN CORPUSCULAR VOLUME 90.2 fL (81-99); MONOCYTES # (AUTO) 0.4 (0.2-0.8); NEUTROPHILS # (AUTO) 3.7 (2.1-6.9); NEUTROPHILS % 62.1 % (38.7-80.0); PLATELET COUNT 340 x10e3/uL (140-360); RED BLOOD COUNT 3.77 x10e6/uL (3.6-5.1); RED CELL DISTRIBUTION WIDTH 16.6 % (11.7-14.4)
[2022-01-11 06:59] LABS: ANION GAP 13.1 mmol/L (8-16); CALCIUM 8.2 mg/dL (8.4-10.2); CREATININE, SERUM 1.42 mg/dL (0.57-1.11); POTASSIUM 4.1 mmol/L (3.5-5.1)
[2022-01-11] MEDS: INSULIN REGULAR, HUMAN 100 UNIT/1 ML SQ SCH ×4 (07:30→20:31)
[2022-01-11] MEDS: APIXAB 2.5 MG TABLET PO SCH ×2 (09:11→20:46)
[2022-01-11] MEDS: AMLODIPINE BESYLATE 5 MG TAB PO SCH ×2 (09:11→20:46)
[2022-01-11] MEDS: PANTOPRAZOLE SOD 40 MG TABEC PO SCH (09:11)
[2022-01-11] MEDS: SERTRALINE HCL 50 MG TAB PO SCH (09:11)
[2022-01-11] MEDS: FUROSEMIDE INJ 10 MG/ML 2 ML VIAL IV SCH (09:11)
[2022-01-11] MEDS: IRON SUCROSE 100 MG in SODIUM CHLORIDE 0.9% 100 ML 100 ML IV SCH (09:12)
[2022-01-11] MEDS: AZITHROMYCIN 250 MG TAB PO SCH (16:28)
[2022-01-11] MEDS: METOPROLOL TARTRATE 25 MG TAB PO SCH (16:28)
[2022-01-11] MEDS: FUROSEMIDE 20 MG TAB PO SCH (17:32)
[2022-01-11] MEDS: MIRTAZAPINE 15 MG TAB PO SCH (20:46)
[2022-01-11] MEDS: SIMVASTATIN 20 MG TAB PO SCH (20:46)
[2022-01-12] VITALS (8 sets, daily range): BP systolic 139–170; BP diastolic 45–72
[2022-01-12] MEDS: FUROSEMIDE 20 MG TAB PO SCH ×2 (05:09→17:47)
[2022-01-12 05:49] LABS: BASOPHILS % 0.2 % (0.0-1.0); EOSINOPHILS # (AUTO) 0.2 (0.0-0.4); EOSINOPHILS % 3.8 % (0.0-6.0); HEMATOCRIT 34.2 % (34.2-44.1); HEMOGLOBIN 10.3 g/dL (12.0-16.0); LYMPHOCYTES # (AUTO) 1.8 (1.0-3.2); LYMPHOCYTES % 37.9 % (18.0-39.1); MEAN CORPUSCULAR HEMOGLOBIN 27.1 pg (28-32); MEAN CORPUSCULAR HGB CONC 30.1 g/dL (31-35); MONOCYTES # (AUTO) 0.4 (0.2-0.8); MONOCYTES % 7.4 % (4.4-11.3); NEUTROPHILS # (AUTO) 2.3 (2.1-6.9); NEUTROPHILS % 49.8 % (38.7-80.0); PLATELET COUNT 320 x10e3/uL (140-360); RED CELL DISTRIBUTION WIDTH 16.5 % (11.7-14.4)
[2022-01-12 06:22] LABS: ANION GAP 10.7 mmol/L (8-16); CALCIUM 8.4 mg/dL (8.4-10.2); CREATININE, SERUM 1.48 mg/dL (0.57-1.11); POTASSIUM 3.7 mmol/L (3.5-5.1)
[2022-01-12] MEDS: INSULIN REGULAR, HUMAN 100 UNIT/1 ML SQ SCH ×4 (07:30→20:56)
[2022-01-12] MEDS: AMLODIPINE BESYLATE 5 MG TAB PO SCH ×2 (09:36→20:54)
[2022-01-12] MEDS: SERTRALINE HCL 50 MG TAB PO SCH (09:36)
[2022-01-12] MEDS: IRON SUCROSE 100 MG in SODIUM CHLORIDE 0.9% 100 ML 100 ML IV SCH (09:36)
[2022-01-12] MEDS: APIXAB 2.5 MG TABLET PO SCH ×2 (09:36→20:54)
[2022-01-12] MEDS: PANTOPRAZOLE SOD 40 MG TABEC PO SCH (09:36)
[2022-01-12] MEDS: METOPROLOL TARTRATE 25 MG TAB PO SCH ×2 (09:37→17:48)
[2022-01-12] MEDS: AZITHROMYCIN 250 MG TAB PO SCH (17:47)
[2022-01-12] MEDS: SIMVASTATIN 20 MG TAB PO SCH (20:54)
[2022-01-12] MEDS: MIRTAZAPINE 15 MG TAB PO SCH (20:54)
[2022-01-13 00:20] VITALS: BP 151/42
[2022-01-13] MEDS: FUROSEMIDE 20 MG TAB PO SCH (05:13)
[2022-01-13 05:26] VITALS: BP 136/40
[2022-01-13 06:18] LABS: BASOPHILS % 0.2 % (0.0-1.0); EOSINOPHILS # (AUTO) 0.2 (0.0-0.4); EOSINOPHILS % 3.2 % (0.0-6.0); HEMATOCRIT 34.5 % (34.2-44.1); HEMOGLOBIN 10.5 g/dL (12.0-16.0); LYMPHOCYTES % 39.2 % (18.0-39.1); MEAN CORPUSCULAR HEMOGLOBIN 27.3 pg (28-32); MEAN CORPUSCULAR HGB CONC 30.4 g/dL (31-35); MEAN CORPUSCULAR VOLUME 89.8 fL (81-99); MONOCYTES # (AUTO) 0.4 (0.2-0.8); MONOCYTES % 7.2 % (4.4-11.3); NEUTROPHILS # (AUTO) 2.5 (2.1-6.9); NEUTROPHILS % 49.4 % (38.7-80.0); PLATELET COUNT 341 x10e3/uL (140-360); RED BLOOD COUNT 3.84 x10e6/uL (3.6-5.1); RED CELL DISTRIBUTION WIDTH 16.3 % (11.7-14.4)
[2022-01-13 06:39] LABS: ALBUMIN 2.6 g/dL (3.5-5.0); ALBUMIN/GLOBULIN RATIO 0.7 (0.8-2.0); ANION GAP 13.8 mmol/L (8-16); CALCIUM 8.5 mg/dL (8.4-10.2); CHOL/HDL RATIO 4.7 (3.0-3.6); CREATININE, SERUM 1.42 mg/dL (0.57-1.11); POTASSIUM 3.8 mmol/L (3.5-5.1)
[2022-01-13 07:00] LABS: THYROID STIMULATING HORMONE 1.713 uIU/mL (0.350-4.940)
[2022-01-13] MEDS: INSULIN REGULAR, HUMAN 100 UNIT/1 ML SQ SCH (07:30)
[2022-01-13 08:00] VITALS: BP 157/44
[2022-01-13] MEDS: SERTRALINE HCL 50 MG TAB PO SCH (08:42)
[2022-01-13] MEDS: PANTOPRAZOLE SOD 40 MG TABEC PO SCH (08:42)
[2022-01-13] MEDS: METOPROLOL TARTRATE 25 MG TAB PO SCH (08:43)
[2022-01-13] MEDS: APIXAB 2.5 MG TABLET PO SCH (09:00)
[2022-01-13] MEDS: AMLODIPINE BESYLATE 5 MG TAB PO SCH (09:00)
[2022-01-13] MEDS ORDERED: LOPRESSOR25 MG PO (11:36)
[2022-01-13] MEDS ORDERED: NORVASC5 MG PO (11:36)
[2022-01-13] MEDS ORDERED: FUROSEMIDE20 MG PO (11:36)
[2022-01-13] MEDS ORDERED: ELIQUIS2.5 MG PO (11:36)
[2022-01-13 11:57] VITALS: BP 158/46
[2022-01-13] MEDS ORDERED: ONDANSETRON HCL 4 MG ORAL DISINTEGRATING TAB PO PRN (13:15)
== END 2022-01-13 13:50 | disposition home or self-care (01) | DRG 291 ==
LOC: ER 12:26 → ERHOLD 14:51 → MED/SURG3 15:34
PROVIDERS: ADMIT Internal Medicine; ATTEND Internal Medicine
DX: I11.0 Hypertensive heart disease with heart failure (principal); J96.20 Acute and chronic respiratory failure, unspecified whether with hypoxia or hypercapnia; I50.31 Acute diastolic (congestive) heart failure; N39.0 Urinary tract infection, site not specified; N17.9 Acute kidney failure, unspecified; J44.1 Chronic obstructive pulmonary disease with (acute) exacerbation; E66.01 Morbid (severe) obesity due to excess calories; E11.9 Type 2 diabetes mellitus without complications; E78.00 Pure hypercholesterolemia, unspecified; D50.9 Iron deficiency anemia, unspecified; Z99.81 Dependence on supplemental oxygen; Z86.718 Personal history of other venous thrombosis and embolism; Z68.37 Body mass index [BMI] 37.0-37.9, adult; Z86.711 Personal history of pulmonary embolism; Z79.01 Long term (current) use of anticoagulants; Z90.49 Acquired absence of other specified parts of digestive tract; Z85.3 Personal history of malignant neoplasm of breast; Z87.891 Personal history of nicotine dependence; Z83.3 Family history of diabetes mellitus; Z82.49 Family history of ischemic heart disease and other diseases of the circulatory system; Z20.822 Contact with and (suspected) exposure to COVID-19; Z79.84 Long term (current) use of oral hypoglycemic drugs
CPT/HCPCS: 36415; 71045; 71260; 80048; 80053; 80061; 81001; 82550; 82553; 82948; 83036; 83540; 83605; 83735; 83880; 84443; 84466; 84484; 85025; 85610; 85730; 87040; 87071; 87086; 87205; 93005; 93306; 94799; 99251; 99284; J0696; J1756; J1817; J1940; J2930; J3370; J7030; J7050; Q9967; U0002

== ENCOUNTER 2022-08-01 13:30 | Inpatient (IN) | payer MEDICARE ==
[~2022-08-01] VITALS: Ht 147.3 cm; Wt 86.2 kg
[~2022-08-01 13:30] MED LIST changes: +ELIQUIS2.5 MG PO; +FUROSEMIDE20 MG PO; +LOPRESSOR25 MG PO; +NORVASC5 MG PO
[2022-08-01 14:02] LABS: BASOPHILS % 0.3 % (0.0-1.0); EOSINOPHILS # (AUTO) 0.1 (0.0-0.4); EOSINOPHILS % 1.6 % (0.0-6.0); HEMATOCRIT 38.2 % (34.2-44.1); HEMOGLOBIN 11.3 g/dL (12.0-16.0); LYMPHOCYTES # (AUTO) 0.9 (1.0-3.2); LYMPHOCYTES % 29.5 % (18.0-39.1); MEAN CORPUSCULAR HEMOGLOBIN 28.9 pg (28-32); MEAN CORPUSCULAR HGB CONC 29.6 g/dL (31-35); MEAN CORPUSCULAR VOLUME 97.7 fL (81-99); MONOCYTES # (AUTO) 0.2 (0.2-0.8); MONOCYTES % 6.7 % (4.4-11.3); NEUTROPHILS # (AUTO) 1.9 (2.1-6.9); NEUTROPHILS % 61.6 % (38.7-80.0); PLATELET COUNT 164 x10e3/uL (140-360); RED BLOOD COUNT 3.91 x10e6/uL (3.6-5.1); RED CELL DISTRIBUTION WIDTH 15.6 % (11.7-14.4)
[2022-08-01 14:13] LABS: INR 1.18
[2022-08-01 14:14] LABS: PARTIAL THROMBOPLASTIN TIME 36.5 seconds (23.8-35.5)
[2022-08-01 14:24] LABS: ALBUMIN/GLOBULIN RATIO 0.7 (0.8-2.0); ANION GAP 14.1 mmol/L (8-16); CALCIUM 8.5 mg/dL (8.4-10.2); CREATININE, SERUM 1.63 mg/dL (0.57-1.11); POTASSIUM 4.1 mmol/L (3.5-5.1)
[2022-08-01 14:30] LABS: CREATINE KINASE MB 1.7 ng/mL (0-5.0)
[2022-08-01 15:12] LABS: CLARITY,URINE CLEAR (CLEAR); COLOR,URINE YELLOW (YELLOW); LEUKOCYTE ESTERASE ,URINE NEGATIVE (NEGATIVE); NITRITE,URINE NEGATIVE (NEGATIVE)
[2022-08-01 15:13] LABS: KETONES,URINE NEGATIVE (NEGATIVE); PROTEIN,URINE DIPSTICK 1+ (NEGATIVE); URINE UROBILINOGEN 0.2 mg/dL (0.2 - 1)
[2022-08-01] MEDS ORDERED: FUROSEMIDE INJ 10 MG/ML 4 ML VIAL IV NR (15:15)
[2022-08-01] MEDS: FUROSEMIDE INJ 10 MG/ML 4 ML VIAL IV SCH (15:24)
[2022-08-01 15:33] LABS: BACTERIA,URINE FEW /HPF; EPITHELIAL CELLS,URINE RARE /LPF; RBC,URINE 0-5 /HPF (0-5); WBC,URINE (MAN) 0-5 /HPF (0-5)
[2022-08-01 18:24] VITALS: BP 163/50
[2022-08-01 18:47] VITALS: BP 163/50
[2022-08-01 19:52] VITALS: BP 155/47
[2022-08-01 21:00] VITALS: BP 155/47
[2022-08-01] MEDS ORDERED: ONDANSETRON HCL INJ 2MG/ML 2ML 2 MG/ML VIAL IV PRN (22:30)
[2022-08-01] MEDS ORDERED: ACETAMINOPHEN 325 MG TAB PO PRN (22:30)
[2022-08-01] MEDS: APIXAB 2.5 MG TABLET PO SCH (23:31)
[2022-08-01] MEDS: AMLODIPINE BESYLATE 5 MG TAB PO SCH (23:31)
[2022-08-02] VITALS (7 sets, daily range): BP systolic 140–180; BP diastolic 47–66
[2022-08-02 05:31] LABS: EOSINOPHILS # (AUTO) 0.1 (0.0-0.4); EOSINOPHILS % 2.4 % (0.0-6.0); HEMATOCRIT 35.4 % (34.2-44.1); HEMOGLOBIN 10.4 g/dL (12.0-16.0); LYMPHOCYTES # (AUTO) 1.4 (1.0-3.2); LYMPHOCYTES % 36.5 % (18.0-39.1); MEAN CORPUSCULAR HEMOGLOBIN 28.3 pg (28-32); MEAN CORPUSCULAR HGB CONC 29.4 g/dL (31-35); MEAN CORPUSCULAR VOLUME 96.2 fL (81-99); MONOCYTES # (AUTO) 0.3 (0.2-0.8); NEUTROPHILS % 52.8 % (38.7-80.0); PLATELET COUNT 175 x10e3/uL (140-360); RED BLOOD COUNT 3.68 x10e6/uL (3.6-5.1); RED CELL DISTRIBUTION WIDTH 15.3 % (11.7-14.4)
[2022-08-02 05:59] LABS: ALBUMIN 2.9 g/dL (3.5-5.0); ALBUMIN/GLOBULIN RATIO 0.8 (0.8-2.0); ANION GAP 14.6 mmol/L (8-16); CALCIUM 8.5 mg/dL (8.4-10.2); CREATININE, SERUM 1.53 mg/dL (0.57-1.11); POTASSIUM 3.6 mmol/L (3.5-5.1)
[2022-08-02 06:25] LABS: CREATINE KINASE MB 1.1 ng/mL (0-5.0)
[2022-08-02] MEDS: INSULIN LISPRO 100 UNIT/1 ML 3ML VIAL SQ SCH ×4 (07:30→20:40)
[2022-08-02] MEDS: PANTOPRAZOLE SOD 40 MG TABEC PO SCH (09:00)
[2022-08-02] MEDS: (Empagliflozin (Jardiance) 25 MG) PO SCH (09:00)
[2022-08-02] MEDS: APIXAB 2.5 MG TABLET PO SCH ×2 (09:43→17:00)
[2022-08-02] MEDS: FUROSEMIDE INJ 10 MG/ML 4 ML VIAL IV SCH (09:44)
[2022-08-02] MEDS: SERTRALINE HCL 50 MG TAB PO SCH (09:44)
[2022-08-02] MEDS: AMLODIPINE BESYLATE 5 MG TAB PO SCH ×2 (09:45→17:00)
[2022-08-02] MEDS ORDERED: ONDANSETRON HCL 4 MG ORAL DISINTEGRATING TAB SL PRN (09:45)
[2022-08-02] MEDS ORDERED: FUROSEMIDE INJ 10 MG/ML 4 ML VIAL IV ONE (16:10)
[2022-08-02 16:19] LABS: CREATINE KINASE MB 1.1 ng/mL (0-5.0)
[2022-08-02] MEDS: SIMVASTATIN 20 MG TAB PO SCH (20:32)
[2022-08-02] MEDS: MIRTAZAPINE 15 MG TAB PO SCH (20:32)
[2022-08-03] VITALS (8 sets, daily range): BP systolic 155–184; BP diastolic 53–81
[2022-08-03 05:44] LABS: BASOPHILS % 0.2 % (0.0-1.0); EOSINOPHILS # (AUTO) 0.1 (0.0-0.4); EOSINOPHILS % 2.2 % (0.0-6.0); HEMATOCRIT 36.3 % (34.2-44.1); HEMOGLOBIN 11.3 g/dL (12.0-16.0); LYMPHOCYTES # (AUTO) 1.7 (1.0-3.2); LYMPHOCYTES % 41.7 % (18.0-39.1); MEAN CORPUSCULAR HEMOGLOBIN 28.1 pg (28-32); MEAN CORPUSCULAR HGB CONC 31.1 g/dL (31-35); MEAN CORPUSCULAR VOLUME 90.3 fL (81-99); MONOCYTES # (AUTO) 0.3 (0.2-0.8); MONOCYTES % 7.3 % (4.4-11.3); NEUTROPHILS % 48.1 % (38.7-80.0); PLATELET COUNT 205 x10e3/uL (140-360); RED BLOOD COUNT 4.02 x10e6/uL (3.6-5.1); RED CELL DISTRIBUTION WIDTH 15.3 % (11.7-14.4)
[2022-08-03 06:32] LABS: ANION GAP 17.4 mmol/L (8-16); CREATININE, SERUM 1.48 mg/dL (0.57-1.11); MAGNESIUM 1.9 MG/DL (1.3-2.1); POTASSIUM 3.4 mmol/L (3.5-5.1)
[2022-08-03] MEDS: INSULIN LISPRO 100 UNIT/1 ML 3ML VIAL SQ SCH ×4 (08:00→21:54)
[2022-08-03] MEDS: (Empagliflozin (Jardiance) 25 MG) PO SCH (09:00)
[2022-08-03] MEDS: APIXAB 2.5 MG TABLET PO SCH ×2 (09:53→17:02)
[2022-08-03] MEDS: SERTRALINE HCL 50 MG TAB PO SCH (09:53)
[2022-08-03] MEDS: PANTOPRAZOLE SOD 40 MG TABEC PO SCH (09:54)
[2022-08-03] MEDS: AMLODIPINE BESYLATE 5 MG TAB PO SCH ×2 (09:54→17:00)
[2022-08-03] MEDS: HYDRALAZINE HCL 20 MG/ML VIAL IV PRN (10:07)
[2022-08-03] MEDS ORDERED: POTASSIUM CHLORIDE 20 MEQ TAB CR PO STA (10:18)
[2022-08-03] MEDS ORDERED: FUROSEMIDE INJ 10 MG/ML 4 ML VIAL IV ONE (11:00)
[2022-08-03] MEDS: SIMVASTATIN 20 MG TAB PO SCH (21:48)
[2022-08-03] MEDS: MIRTAZAPINE 15 MG TAB PO SCH (21:48)
[2022-08-04] VITALS (8 sets, daily range): BP systolic 142–183; BP diastolic 67–92
[2022-08-04 06:07] LABS: ANION GAP 15.7 mmol/L (8-16); CALCIUM 9.3 mg/dL (8.4-10.2); CREATININE, SERUM 1.45 mg/dL (0.57-1.11); POTASSIUM 3.7 mmol/L (3.5-5.1)
[2022-08-04] MEDS: FUROSEMIDE 20 MG TAB PO SCH ×2 (07:10→17:10)
[2022-08-04] MEDS: INSULIN LISPRO 100 UNIT/1 ML 3ML VIAL SQ SCH ×4 (07:45→21:03)
[2022-08-04] MEDS: (Empagliflozin (Jardiance) 25 MG) PO SCH (09:00)
[2022-08-04] MEDS: APIXAB 2.5 MG TABLET PO SCH ×2 (09:43→17:10)
[2022-08-04] MEDS: PANTOPRAZOLE SOD 40 MG TABEC PO SCH (09:43)
[2022-08-04] MEDS: SERTRALINE HCL 50 MG TAB PO SCH (09:44)
[2022-08-04] MEDS: NIFEDIPINE CR 30 MG TAB PO SCH (10:00)
[2022-08-04] MEDS: HYDRALAZINE HCL 20 MG/ML VIAL IV PRN (10:24)
[2022-08-04] MEDS: MIRTAZAPINE 15 MG TAB PO SCH (20:57)
[2022-08-04] MEDS: SIMVASTATIN 20 MG TAB PO SCH (20:58)
[2022-08-05 00:04] VITALS: BP 170/76
[2022-08-05 04:00] VITALS: BP 168/65
[2022-08-05 05:00] LABS: ANION GAP 17.5 mmol/L (8-16); CREATININE, SERUM 1.46 mg/dL (0.57-1.11); POTASSIUM 3.5 mmol/L (3.5-5.1)
[2022-08-05] MEDS: FUROSEMIDE 20 MG TAB PO SCH (06:49)
[2022-08-05] MEDS: INSULIN LISPRO 100 UNIT/1 ML 3ML VIAL SQ SCH ×2 (07:51→11:30)
[2022-08-05 08:24] VITALS: BP 170/69
[2022-08-05] MEDS: APIXAB 2.5 MG TABLET PO SCH (08:36)
[2022-08-05] MEDS: SERTRALINE HCL 50 MG TAB PO SCH (08:38)
[2022-08-05] MEDS: PANTOPRAZOLE SOD 40 MG TABEC PO SCH (08:38)
[2022-08-05] MEDS: NIFEDIPINE CR 30 MG TAB PO SCH (08:38)
[2022-08-05] MEDS: (Empagliflozin (Jardiance) 25 MG) PO SCH (09:00)
[2022-08-05 11:18] VITALS: BP 163/69
[2022-08-05] MEDS ORDERED: FUROSEMIDE20 MG PO (12:30)
[2022-08-06] MEDS ORDERED: FUROSEMIDE 40 MG TAB PO SCH (09:00)
== END 2022-08-05 14:11 | disposition home or self-care (01) | DRG 291 ==
LOC: ER 13:47 → ERHOLD 15:10 → INTOOBSV 15:10 → MED/SURG 17:38 → OBSVTOIN 08-03 14:17
PROVIDERS: ADMIT Internal Medicine; ATTEND Internal Medicine
DX: I13.0 Hypertensive heart and chronic kidney disease with heart failure and stage 1 through stage 4 chronic kidney disease, or unspecified chronic kidney disease (principal); I50.33 Acute on chronic diastolic (congestive) heart failure; J84.9 Interstitial pulmonary disease, unspecified; J96.10 Chronic respiratory failure, unspecified whether with hypoxia or hypercapnia; J43.9 Emphysema, unspecified; I27.20 Pulmonary hypertension, unspecified; Z86.711 Personal history of pulmonary embolism; Z79.01 Long term (current) use of anticoagulants; E11.22 Type 2 diabetes mellitus with diabetic chronic kidney disease; Z86.16 Personal history of COVID-19; Z99.81 Dependence on supplemental oxygen; Z85.3 Personal history of malignant neoplasm of breast; Z20.822 Contact with and (suspected) exposure to COVID-19; M17.0 Bilateral primary osteoarthritis of knee; Z96.653 Presence of artificial knee joint, bilateral; Z96.642 Presence of left artificial hip joint; I25.10 Atherosclerotic heart disease of native coronary artery without angina pectoris; N18.32 Chronic kidney disease, stage 3b; Z79.899 Other long term (current) drug therapy; Z87.891 Personal history of nicotine dependence
CPT/HCPCS: 36415; 71045; 71250; 80048; 80053; 81001; 82550; 82553; 82948; 83540; 83735; 83880; 84466; 84484; 85025; 85610; 85730; 87040; 87086; 87400; 93005; 94760; 94799; 99251; 99284; G0378; J0360; J1940